=== PATIENT | female | born 1995 | race Caucasian/White ===

== ENCOUNTER 2016-07-02 16:23 | Outpatient (CLI) | payer BC ==
[2016-07-02 19:10] LABS: BILIRUBIN,TOTAL 0.4 mg/dL (0.2-1.0); CALCIUM, SERUM 9.2 mg/dL (8.5-10.1); CREATININE 0.8 mg/dL (0.6-1.3); POTASSIUM 3.7 mmol/L (3.5-5.1); TOTAL PROTEIN, SERUM 8.2 g/dL (6.4-8.2)
[2016-07-02 20:43] LABS: BASOPHILS # (AUTO) 0.1 /CMM (0.0-0.2); BASOPHILS % (AUTO) 0.5 % (0.0-2.0); DIFF TOTAL % 100 %; HEMATOCRIT 40 % (33-45); HEMOGLOBIN 13.4 g/dL (11.5-14.8); LYMPHOCYTES # (AUTO) 3.1 /CMM (0.8-4.8); LYMPHOCYTES % (AUTO) 28.2 % (20.0-44.0); MEAN CORPUSCULAR HEMOGLOBIN 28 PG (26.0-33.0); MEAN CORPUSCULAR HGB CONC 33 g/dl (31.0-36.0); MEAN CORPUSCULAR VOLUME 85 fL (82-100); MONOCYTES # (AUTO) 0.6 /CMM (0.1-1.30); MONOCYTES % (AUTO) 5.3 % (2.0-12.0); NEUTROPHILS # (AUTO) 7.3 /CMM (1.8-8.9); PLATELET COUNT (AUTO) 356 /CMM (150-450); RED BLOOD CELL COUNT(AUTO) 4.72 MIL/uL (4.0-5.2)
[2016-07-03 07:25] LABS: *RAPID PLASMA REAGIN QUAL Non Reactive (Non Reactive)
[2016-07-03 10:22] LABS: HSV 2 IgG, TYPE SPECIFIC <0.91 index (0.00-0.90)
[2016-07-03 17:43] LABS: *ANAANTI-SCLERODERMA-70 AB <0.2 AI (0.0-0.9)
[2016-07-04 03:06] LABS: HIV SCRN 4G wRFX Non Reactive (Non Reactive)
== END 2016-07-02 23:59 | disposition home or self-care (01) ==
LOC: LAB 16:23
PROVIDERS: ATTEND Family Medicine
DX: Z11.3 Encounter for screening for infections with a predominantly sexual mode of transmission (principal); R21 Rash and other nonspecific skin eruption
CPT/HCPCS: 36415; 80053-TC; 85025-TC; 86160; 86225; 86226; 86235; 86592; 87491; 87591

== ENCOUNTER 2016-10-08 14:05 | Emergency (ER) | payer BC ==
[~2016-10-08] VITALS: Ht 78.7 cm; Wt 90.3 kg
--- NOTE | 2016-10-08 14:20 | NUR ---
PT BIB SELF SENT BY PMD FOR R/O APPENDICITIS C/O N/V TODAY WITH MILD RUQ ABD PAIN. ABD SOFT NON-TENDER. NO REBOUND TENDERNESS OR GUARDING. DENIES BLOOD IN VOMIT. RESP EVEN UNLABORED. SKIN WARM NONDIAPHORETIC. AMBULATORY WITH STEADY GAIT. NAD NOTED. IN ER BED 09.
[2016-10-08 15:36] LABS: CREATININE 0.7 mg/dL (0.6-1.3); POTASSIUM 3.5 mmol/L (3.5-5.1)
[2016-10-08] MEDS ORDERED: IOHEXOL-300 100 ML VIAL IV ONE (16:14)
[2016-10-08] MEDS ORDERED: IV NS 0.9% 250 ML IV ONE (16:14)
--- NOTE | 2016-10-08 17:26 | NUR ---
Patient discharged to home in stable condition. Written and verbal after care instructions given. Patient verbalizes understanding of instruction. IV removed. Catheter intact and site benign. Pressure and 4x4 applied to site. No bleeding noted.
[2016-10-08 17:27] VITALS: BP 133/82
== END 2016-10-08 17:46 | disposition home or self-care (01) ==
LOC: ER 14:06
DX: N83.202 Unspecified ovarian cyst, left side (principal); I88.9 Nonspecific lymphadenitis, unspecified; K58.9 Irritable bowel syndrome, unspecified
CPT/HCPCS: 36415; 80048-TC; 84702-TC; A4606; J7050; Q9967; Z7610

== ENCOUNTER 2016-10-14 09:41 | Outpatient (CLI) | payer BC ==
[2016-10-14 10:24] LABS: BASOPHILS % (AUTO) 0.3 % (0.0-2.0); EOSINOPHILS # (AUTO) 0.1 /CMM (0.0-0.7); EOSINOPHILS % (AUTO) 0.7 % (0.0-6.0); HEMATOCRIT 38 % (33-45); HEMOGLOBIN 13.3 g/dL (11.5-14.8); LYMPHOCYTES # (AUTO) 2.5 /CMM (0.8-4.8); LYMPHOCYTES % (AUTO) 30.3 % (20.0-44.0); MEAN CORPUSCULAR HEMOGLOBIN 29 PG (26.0-33.0); MEAN CORPUSCULAR HGB CONC 35 g/dl (31.0-36.0); MEAN CORPUSCULAR VOLUME 83 fL (82-100); MONOCYTES # (AUTO) 0.4 /CMM (0.1-1.30); MONOCYTES % (AUTO) 5.2 % (2.0-12.0); NEUTROPHILS # (AUTO) 5.3 /CMM (1.8-8.9); NEUTROPHILS % (AUTO) 63.5 % (43.0-81.0); PLATELET COUNT (AUTO) 317 /CMM (150-450); RDW COEFFICIENT OF VARIATION 13.8 (11.5-15.0); RED BLOOD CELL COUNT(AUTO) 4.62 MIL/uL (4.0-5.2); WHITE BLOOD COUNT (AUTO) 8.4 K/uL (4.3-11.0)
== END 2016-10-14 23:59 | disposition home or self-care (01) ==
LOC: LAB 09:41
PROVIDERS: ATTEND Family Medicine
DX: I88.9 Nonspecific lymphadenitis, unspecified (principal)
CPT/HCPCS: 36415; 85025-TC